=== PATIENT | male | born 1930 | race Caucasian/White ===

== ENCOUNTER 2016-06-23 07:05 | Observation (INO) | payer OTHER, MEDICARE ==
--- NOTE | 2016-06-23 07:04 | EDPHY ---
H & P HPI/ROS: CHIEF COMPLAINT: Chest pain. HISTORY OF PRESENT ILLNESS: The patient is an 86-year-old male with metastatic osteosarcoma who presents via EMS for right-sided chest pain that began 2 hours ago. The pain has been constant since onset. It does not radiate. The pain is worsened with deep breathing. He is not currently anticoagulated on blood thinners but takes daily aspirin. He denies shortness of breath, dizziness, lightheadedness, or other complaints. EMS administered 324mg PO Aspirin en route. REVIEW OF SYSTEMS: A complete 10-point review of systems was performed and is negative except for those items mentioned in the HPI. Past Medical/Surgical History: Hypertension, atrial flutter, prostate cancer, right thigh sarcoma, diabetes type II. I reviewed the patient's H&P dated 11/28/2015. Social History: Lives at the [facility]. Physical Exam: General Appearance: Alert, no distress Eyes: Pupils equal and round, no conjunctival pallor or injection ENT, Mouth: Mucous membranes moist Neck: Normal inspection Respiratory: Rales at both bases. Cardiovascular: Regular rate and rhythm Chest: Right-sided chest wall tenderness. Gastrointestinal: Abdomen is soft and non-tender Neurological: A&O, nonfocal, normal gait Skin: Warm and dry, no rash Extremities: Nontender, no pedal edema Psychiatric: Mood and affect normal Constitutional: Initial Vital Signs Temperature (C) 36.5 C 06/23/16 07:05 Heart Rate 101 H 06/23/16 07:05 Respiratory Rate 22 H 06/23/16 07:05 Blood Pressure 142/95 H 06/23/16 07:05 O2 Sat (%) 87 L 06/23/16 07:05 O2 Delivery Mode Room Air Allergies/Adverse Reactions: acetaminophen [From Tylenol-Codeine #3] Allergy (Verified 06/23/16 07:26) aspartame [artifical sweetener] Allergy (Verified 06/23/16 07:26) codeine phosphate [From Tylenol-Codeine #3] Allergy (Verified 06/23/16 07:26) Annyedy-Psc-Rzn Reductase Inhibitor Allergy (Verified 06/23/16 07:26) Home Medications: Medication Instructions Recorded Aspirin EC [Aspirin EC 81 mg (*)] 81 mg PO DAILY 11/28/15 Colesevelam HCl [Welchol (*)] 1,875 mg PO BIDMEAL 11/28/15 Dabigatran Etexilate Mesyl 150 mg PO BID 11/28/15 [Pradaxa 150 MG (*)] Metoprolol Succinate Xr [Toprol Xl 50 mg PO BID 11/28/15 50 mg (*)] Naproxen Sodium [Aleve 220 MG (*)] 220 mg PO DAILY PRN 11/28/15 Ramipril [Altace 5mg (*)] 10 mg PO BID 11/28/15 metFORMIN HCL [Glucophage 500 mg 1,000 mg PO BIDMEAL 11/28/15 (*)] Acetaminophen [Tylenol ES 500 mg 1,000 mg PO Q6HRS PRN #0 tab 12/02/15 (*)] HYDROmorphone HCL [Dilaudid 2 mg 2 mg PO Q4HRS PRN #14 tab 12/02/15 (*)] Polyethylene Glycol 3350 [Miralax 17 gm PO DAILY PRN #0 pkt 12/02/15 17 gm (*)] Sennosides/Docusate Sodium 1 - 2 tab PO BID #0 tab 12/02/15 [Senokot-S] Medical Decision Making ED Course/Re-evaluation: I met EMS on arrival and obtained a report from the physical director. This 86-year-old male with metastatic osteosarcoma presents with 2 hours of right-sided chest pain. On arrival his vitals are stable but he is mildly hypertensive at 154/ 106. His pain is pleuritic in nature. He is not short of breath. He is tachycardic at 101. An IV was established and labs ordered including cardiac enzymes. EKG obtained. His osteosarcoma is a risk factor for blood clot. I am primarily suspicious for pulmonary embolism so a chest CT was ordered. He is 87 % on room air. Troponin and BNP negative. Lab work is unremarkable. 2135: Chest CT results conveyed to me by Dr. Yepez, radiology. He reports pulmonary embolism. See Imaging section for official report. Hospitalist paged. 2133: Consulted with Fang Paul, hospitalist. She accepts admission for Dr. Layne. Lovenox 80mg subcutaneous administered. Differential Diagnosis: The differential diagnosis for the patient's chest pain included but was not limited to myocardial ischemia, pulmonary embolus, chest wall pain, pleural inflammation, and pulmonary infectious causes. - Data Points Laboratory Results: Laboratory Results 06/23/16 07:10 06/23/16 07:10 06/23/16 06/23/16 07:10 07:10 WBC 9.42 10^3/uL 10^3/uL (3.80-9.50) RBC 5.38 10^6/uL 10^6/uL (4.40-6.38) Hgb 14.4 g/dL g/dL (13.7-17.5) Hct 44.2 % % (40.0-51.0) MCV 82.2 fL fL (81.5-99.8) MCH 26.8 pg L pg (27.9-34.1) MCHC 32.6 g/dL g/dL (32.4-36.7) RDW 18.8 % H % (11.5-15.2) Plt Count 257 10^3/uL 10^3/uL (150-400) MPV 11.7 fL fL (8.7-11.7) Neut % (Auto) 75.5 % H % (39.3-74.2) Lymph % (Auto) 9.6 % L % (15.0-45.0) Webb % (Auto) 9.3 % % (4.5-13.0) Eos % (Auto) 4.7 % % (0.6-7.6) Baso % (Auto) 0.5 % % (0.3-1.7) Nucleat RBC Rel Count 0.0 % % (0.0-0.2) Absolute Neuts (auto) 7.11 10^3/uL H 10^3/uL (1.70-6.50) Absolute Lymphs (auto) 0.90 10^3/uL L 10^3/uL (1.00-3.00) Absolute Monos (auto) 0.88 10^3/uL H 10^3/uL (0.30-0.80) Absolute Eos (auto) 0.44 10^3/uL H 10^3/uL (0.03-0.40) Absolute Basos (auto) 0.05 10^3/uL 10^3/uL (0.02-0.10) Absolute Nucleated RBC 0.00 10^3/uL 10^3/uL (0-0.01) Immature Gran % 0.4 % % (0.0-1.1) Immature Gran # 0.04 10^3/uL 10^3/uL (0.00-0.10) Sodium 138 mEq/L mEq/L (134-144) Potassium 4.7 mEq/L mEq/L (3.5-5.2) Chloride 107 mEq/L mEq/L (97-110) Carbon Dioxide 16 mEq/l L mEq/l (22-31) Anion Gap 15 mEq/L mEq/L (8-16) BUN 23 mg/dL mg/dL (7-23) Creatinine 0.7 mg/dL mg/dL (0.7-1.3) Estimated GFR > 60 Glucose 258 mg/dL H mg/dL (70-100) Calcium 9.4 mg/dL mg/dL (8.5-10.4) Troponin I < 0.012 ng/mL ng/mL (0-0.034) NT-Pro-B Natriuret Pep 82 pg/mL pg/mL (0-450) Medications Given: Discontinued Medications Sodium Chloride (Ns) 500 mls @ 0 mls/hr IV ONCE ONE PRN Reason: As Directed Stop: 06/23/16 08:29 Last Admin: 06/23/16 08:51 Dose: 500 mls Departure - Departure Disposition: [facility] Inpatient Acute Clinical Impression: Pulmonary embolism Qualifiers: Pulmonary embolism type: other Chronicity: unspecified Acute cor pulmonale presence: without acute cor pulmonale Qualified Code(s): I26.99 - Other pulmonary embolism without acute cor pulmonale Condition: Fair Referrals: Patient,NotPresent [Unknown] - As per Instructions Report Scribed for: Kenna Rm Report Scribed by: Sammy Arreaga Date of Report: 06/23/16 Time of Report: 07:04 Physician Review and Approval Statement: 06/23/16 07:04 Portions of this note were transcribed by a medical manager. I personally performed a history, physical exam, medical decision making, and confirmed accuracy of information the transcribed note.
--- NOTE | 2016-06-23 07:20 | CPEKG ---
Heart Rate: 99 RR Interval: 606 P-R Interval: 216 QRSD Interval: 132 QT Interval: 368 QTC Interval: 473 P Whitney: 16 QRS Whitney: 26 T Wave Whitney: -33 EKG Severity - ABNORMAL ECG - EKG Impression: SINUS RHYTHM EKG Impression: FIRST DEGREE AV BLOCK EKG Impression: RIGHT BUNDLE BRANCH BLOCK Electronically Signed By: Kenna Rm 23-Jun-2016 13:41:27
[2016-06-23 07:22] LABS: % IMMATURE GRANULYOCYTES 0.4 % (0.0-1.1); ABSOLUTE IMMATURE GRANULOCYTES 0.04 10^3/uL (0.00-0.10); ADD DIFF? NO; ADD MORPH? NO; ADD SCAN? NO; ATYPICAL LYMPHOCYTE FLAG 10 (0-99); FRAGMENT RBC FLAG 20 (0-99); HEMATOCRIT 44.2 % (40.0-51.0); HEMOGLOBIN 14.4 g/dL (13.7-17.5); LEFT SHIFT FLG 0 (0-99); LIPEMIA HEMOLYSIS FLAG 80 (0-99); MEAN CELL HEMOGLOBIN 26.8 pg (27.9-34.1); MEAN CELL HEMOGLOBIN CONCENTR. 32.6 g/dL (32.4-36.7); MEAN CELL VOLUME 82.2 fL (81.5-99.8); MEAN PLATELET VOLUME 11.7 fL (8.7-11.7); PLATELET CLUMPS FLAG 0 (0-99); PLATELET COUNT 257 10^3/uL (150-400); RED BLOOD CELL COUNT 5.38 10^6/uL (4.40-6.38); RED CELL DISTRIBUTION WIDTH 18.8 % (11.5-15.2)
[2016-06-23] MEDS ORDERED: IOPAMIDOL (ISOVUE 370) 100 ML BTL IV ONE (08:11)
[2016-06-23 08:19] LABS: ANION GAP 15 mEq/L (8-16); CALCIUM 9.4 mg/dL (8.5-10.4); CARBON DIOXIDE 16 mEq/l (22-31); CHLORIDE 107 mEq/L (97-110); CREATININE 0.7 mg/dL (0.7-1.3); GLOMERULAR FILTRATION RATE > 60; GLUCOSE 258 mg/dL (70-100); POTASSIUM 4.7 mEq/L (3.5-5.2); SODIUM 138 mEq/L (134-144)
[2016-06-23] MEDS ORDERED: NS 500 ML IV ONE (08:28)
[2016-06-23 09:17] LABS: TROPONIN I < 0.012 ng/mL (0-0.034)
[2016-06-23] MEDS ORDERED: ENOXAPARIN 80 MG/0.8 ML SYR SC ONE (09:42)
[2016-06-23] MEDS ORDERED: POLYETHYLENE GLYCOL 3350 17 GM PKT PO PRN (11:33)
[2016-06-23] MEDS ORDERED: SENNOSIDES/DOCUSATE SODIUM TAB PO PRN (11:33)
[2016-06-23] MEDS ORDERED: HYDROmorphONE/DILAUDID 2 MG TAB PO PRN (11:33)
[2016-06-23] MEDS ORDERED: D50W 25 GM/50 ML SYR IVP PRN (11:34)
[2016-06-23] MEDS: INSULIN LISPRO 100 UNIT/ML SC SCH ×2 (13:01→16:57)
[2016-06-23] MEDS ORDERED: ONDANSETRON DISINTEGRATING 4 MG TAB PO PRN ×2 (13:15→13:30)
[2016-06-23] MEDS ORDERED: ONDANSETRON 4 MG/2 ML VIAL IVP PRN (13:15)
[2016-06-23] MEDS ORDERED: CETIRIZINE 10 MG TAB PO PRN (13:30)
[2016-06-23] MEDS ORDERED: CLOBETASOL 0.05% 15 GM OINT TUBE TP PRN (13:30)
--- NOTE | 2016-06-23 14:09 | GHP ---
[f rep st] HISTORY AND PHYSICAL DATE OF ADMISSION: 06/23/2016 CHIEF COMPLAINT: Right-sided chest wall pain. HISTORY OF PRESENT ILLNESS: The patient is an 86-year-old gentleman with a history of metastatic osteocarcinoma as well as a history of atrial flutter, who presented to the emergency room with acute chest pain notably on the right side of his chest wall area. He said the pain has been constant since earlier this morning. The pain does not radiate. He denies any shortness of breath or any pain with inspiration. He describes it as a constant pain. He has a history of being anticoagulated with Pradaxa for treatment of A-flutter with a history of an atrial thrombus; per his daughter, he had an ablation and has remained in sinus rhythm. He is no longer on Pradaxa. In the emergency room, he had a CTA performed that showed a pulmonary embolus in right lower lobe area. In addition, it showed that he has large pulmonary metastasis. During my interview, he does not appear to be in any pain. Appetite has been good. No changes in his bowel movements. He complains of swelling of his legs that has been ongoing. In January, this past year had right leg surgery for removal of an osteosarcoma in the right thigh area. PAST MEDICAL HISTORY: 1. Diabetes type 2. 2. Gait instability. 3. Osteosarcoma. 4. A-flutter with a history of atrial thrombus, status post ablation. 5. Hypertension. 6. Remote history of prostate cancer. 7. History of COPD, per radiologic data. 8. Macular degeneration that resolved. PAST SURGICAL HISTORY: 1. Right leg surgery in January 2016 for removal osteosarcoma. 2. Shoulder surgery. 3. Cataract surgery. SOCIAL HISTORY: He lives at home with his . He was recently discharged from [facility] for rehabilitation and then returned home to the [place]. He currently is living at the [place]. He has 4 children. He has been for 64 years. He does not smoke. He does not drink alcohol. He notes that he used to be very athletic and hiked [email or web address] 11 times. In the past, he did investments and renovation of apartment buildings. ALLERGIES: To acetaminophen, aspartame, codeine, phosphate, gabapentin. Seasonal allergies to ragweed. He is also very sensitive to cotton and wool, and multiple fabrics. HOME MEDICATIONS: Herbal supplements daily. Zyrtec 10 mg daily. Acetaminophen 325 mg daily. Zofran ODT 8 mg p.o. q.8 hours p.r.n. Vitamin B12 , 1000 mcg daily. Milk of Mag 30 mL daily. Dilaudid 2 mg q.4 hours p.r.n. Temovate ointment 1 application topical b.i.d. p.r.n. Benadryl 25 mg p.o. at bedtime. Celebrex 200 mg daily p.r.n. Multivitamin 1 tab daily. Aspirin 325 mg daily. Metformin 1000 mg daily. Senna 1-2 tabs twice daily. MiraLAX 17 g daily. REVIEW OF SYSTEMS: A 10-point review of system was performed and negative other than pertinent positives in HPI and past medical history. PHYSICAL EXAM: GENERAL: The patient is an 86-year-old male, who does not appear to be in any acute distress. VITAL SIGNS: Blood pressure is 142/93, heart rate 94, respiratory rate is 14, O2 saturation on 2 L are 94%, temperature is 36.4 Celsius. EYES: He is wearing glasses. Pupils are equal and reactive. EOMs are intact. No conjunctival injection noted. ENT: Normal ears. Hearing is intact. Normal lips, teeth, oral airway is moist. Trachea is midline. CARDIOVASCULAR: He is in a regular rate and rhythm. No murmurs, rubs, or gallops noted. CHEST/LUNGS: He has normal respiratory effort. Lung sounds are very diminished throughout the right middle lobe down. ABDOMEN: Soft, nontender. SKIN: No rashes. Warm, dry and intact. MUSCULOSKELETAL: Equal upper and lower extremity strength. PSYCHIATRIC: He is alert and oriented. Normal mood and affect. Normal judgment and insight. Normal memory. DATA REVIEWED: 1. EKG showed a sinus rhythm, with a 1st degree block, with a right bundle branch block. 2. A chest CTA was performed which showed segmental pulmonary arterial embolus in the right lower lobe. He has large pulmonary metastasis, much worse than January 2016. No changes in fracture of the left 10th and 11th ribs, and compression fractures at T7 and L1. LABORATORY DATA: CBC shows a white blood cell count 9.42, hemoglobin 14.4, hematocrit 44.2, platelet count 257. Chemistry: Sodium is 138, potassium 4.7, chloride of 107, CO2 of 16, BUN 23, creatinine 0.7, glucose 258. Troponin is less than 0.012. I reviewed his care with Dr. Kenna Rm, emergency room physician. ASSESSMENT AND PLAN: 1. Right lower lobe subsegmental pulmonary embolus. He was given a treatment dose of Lovenox in the emergency room. I reviewed his care with Dr. Sol, who recommended Xarelto. Will initiate this. In addition, he has been having some lower extremity swelling. The family would like to know the etiology of the blood clot. Will order ultrasounds to his lower extremities. 2. Diabetes type 2. Will hold his metformin in the setting of getting recent contrast. Sliding scale insulin will be initiated. Will place him on an ADA diet. 3. Hypertension. Resume his home medications. 4. Concern for increasing size of pulmonary metastasis. I spoke with Dr. Sol , he will follow up with the patient. 5. Constipation. Resume his home medication regimen. 6. Code status: Full. 7. Length of stay: He will require less than a 2-midnight stay. This can be re-evaluated in the morning if necessary. 8. DVT prophylaxis. He will be anticoagulated with Xarelto. /[id number]/MODL MTDD
[2016-06-23] MEDS ORDERED: RIVAROXABAN 15 MG TAB PO SCH (18:00)
--- NOTE | 2016-06-23 18:13 | GCON ---
[f rep st] CONSULTATION ONCOLOGY INITIAL VISIT PRIMARY ONCOLOGIST: Kathia Sol MD. REASON FOR CONSULTATION: Metastatic sarcoma. HISTORY OF PRESENT ILLNESS: The patient is an 86-year-old gentleman well known to me with metastati c osteosarcoma with lung mets. 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 He was seen and treated by Dr. Andrew Martinez and Dr. Clemons in [place]. He underwent neoadjuvant radiation in October through December with a partial resp onse, and then underwent resection with clear margins in January 2016. In January, he had new dl y small lesions in his lungs that were too small to determine, so I have been monitoring him closely . After the resection, he has been undergoing rehab with slow improvement. Since January, he has been having a slow progression in the lung nodules, and on May 22, [facility] showed that these nodules not only continue to grow, but were PET avid consistent with metastat ic disease. At that time, I talked to him, but he did not seem to be having much symptoms from the cancers, and was still in rehab. Her plan was to try to get him home, and then determine systemic t herapy at that time. He was admitted today with right-sided chest pain. He has been having a little mild hypoxia the las t couple days. He is home with therapy, and assistants coming out to the this independent living. He had a previous history of atrial flutter and atrial thrombus, and had been on Pradaxa, but after the ablation, was in sinus rhythm, so it was stopped. In the emergency room, he had a CTA performed that showed a pulmonary embolism in the right lower lobe. It also showed that his pulmonary metast ases had enlarged since January, but they did not compare it to the PET scan in May. He has mayb e been a little bit more tired and slightly more dyspneic, but no other symptoms since I last saw winnie infante. He is in the room with his daughter. ALLERGIES: Statins. PAST MEDICAL HISTORY: Chronic illnesses: 1. Type 2 diabetes. 2. History of atrial flutter. 3. Hypertension. 4. Remote history of prostate cancer. 5. History of COPD. 6. Macular degeneration. 7. Osteosarcoma, as per HPI. PAST SURGICAL HISTORY: Includes: 1. The right leg surgery in January. 2. Shoulder surgery. 3. Cataract surgery. SOCIAL HISTORY: He is lives in independent living after recent discharge from [facility]. He is living at the [facility]. He has 4 children. Does not smoke or drink alcohol. FAMILY HISTORY: Negative for malignancy in the family. REVIEW OF SYSTEMS: Ten-point review was performed. Pertinent positives in HPI, otherwise negative. PHYSICAL EXAMINATION: VITAL SIGNS: Temperature is 36.7, pulse is 93, blood pressure is 154/98. GE NERAL: He is an elderly man, but in no distress. HEENT: Unremarkable. LUNGS: Clear. CARDIAC: Regular without murmur. He has slight edema in his left leg. ABDOMEN: Soft, nontender. SKIN: No sign of thrombophlebitis. NEUROLOGIC: Grossly intact. LABORATORY DATA: On arrival, CBC is unremarkable. Glucose is up. His other chemistries are unrema rkable. CT angiogram compared to January showed that he is having an increase in the masses, the largest is 3.6 cm in the left upper lobe. I believe on the PET scan, it was reported at about 1.5 cm. IMPRESSION: 1. Metastatic osteosarcoma, with progressive disease in the lungs. 2. Acute pulmonary embolism. I spoke with the hospitalist, and, apparently, he has testing showing that he is very sensitive to C oumadin, had problems with it in the past, so I agree with using one of the other agents. I am not as in favor of Pradaxa because it has cleared almost 100% to the kidneys, and most elderly patients do have some mild kidney dysfunction. Instead, it is decided to put on rivaroxaban, which is fine. I spent significant time today with him and the daughter discussing whether or not he should start s ystemic therapy. The alternative option is not undergo any systemic therapy, and going comfort radha ures only. He has not been certain whether or not he wants to undergo therapy. If he does choose t herapy, there are 2 options: One is intravenous with doxorubicin, day 1, and olaratumab, day 1/day 8 every 3 weeks. I explained to him that the benefit of IVs, we know the drug gets in and absorbed. The downside is, he will have to come in the office for treatment once a week for 2 weeks in a row , then every 3 weeks, and we will need to put in something like a PICC line because doxorubicin is d angerous to give in just a standard IV. We will also need a baseline echocardiogram. The other sys temic treatment would be to try pazopanib, which is given at 800 mg daily. Most patients tolerate i t, but can cause rash and diarrhea. Generally, with the drugs held, his symptoms resolve rapidly. At this point, he wants to discuss with the family and think about it, but if he elects treatment, anjali gastelum is thinking oral, which we can set that up if he prefers to go forward with that. /[id number]/MODL
[2016-06-23] MEDS: RIVAROXABAN 15 MG TAB PO SCH (20:17)
[2016-06-24] MEDS ORDERED: CYANO/VITAMIN B12 1000 MCG TAB PO SCH (09:00)
[2016-06-24] MEDS ORDERED: Herbals/Supplements -Info Only PO SCH ×2 (09:00)
[2016-06-24] MEDS ORDERED: MULTIVITAMINS 1 EACH TAB PO SCH (09:00)
[2016-06-24 09:06] VITALS: RESP 18
[2016-06-24] MEDS: INSULIN LISPRO 100 UNIT/ML SC SCH ×2 (09:07→12:00)
[2016-06-24] MEDS: RIVAROXABAN 15 MG TAB PO SCH (09:07)
--- NOTE | 2016-06-24 10:32 | PDIAF ---
- Diagnosis Code Status: Full Code - Medication Management Discharge Medications: Medications to Continue on Transfer Polyethylene Glycol 3350 [Miralax 17 gm (*)] 17 gm PO DAILY PRN #0 pkt 12/02/15 [Last Taken Unknown] Acetaminophen [Tylenol 325mg (*)] 325 mg PO DAILY PRN 06/23/16 [Last Taken Unknown] Cetirizine [ZyrTEC 10 mg (*)] 10 mg PO DAILY PRN 06/23/16 [Last Taken Unknown] Clobetasol 0.05% [Temovate Ointment] 1 leila TP BID PRN 06/23/16 [Last Taken Unknown] Cyanocobalamin [Vitamin B12 (*)] 1,000 mcg PO DAILY 06/23/16 [Last Taken Unknown ] Magnesium Hydroxide [Milk of Magnesia] 30 ml PO DAILY PRN 06/23/16 [Last Taken Unknown] Multivitamins [Multivitamin (*)] 1 each PO DAILY 06/23/16 [Last Taken Unknown] Ondansetron Odt [Zofran Odt 4 mg (*)] 8 mg PO Q8HRS PRN 06/23/16 [Last Taken Unknown] Sennosides/Docusate Sodium [Senokot-S] 1 - 2 tab PO BID PRN 06/23/16 [Last Taken Unknown] celeCOXIB [Celebrex (*)] 200 mg PO DAILY PRN 06/23/16 [Last Taken Unknown] diphenhydrAMINE [Benadryl 25 MG (*)] 25 mg PO HS PRN 06/23/16 [Last Taken Unknown] metFORMIN HCL [Metformin HCl ER] 1,000 mg PO DAILY 06/23/16 [Last Taken Unknown] Rivaroxaban [Xarelto 15mg (*)] 15 mg PO BIDMEAL #42 tab 06/24/16 [Last Taken Unknown] Discharge Medications: Refer to the Discharge Home Medication list for PRN reason. - Orders Services needed: Home Care, Registered Nurse, Certified Rounding And Backing Machine Operator, Physical Therapy, Occupational Therapy Home Care Face to Face: I certify that this patient was under my care and that I had the required [id number] encounter meeting the encounter requirements on the discharge day. My findings support the fact that the patient is homebound as defined in CMS Chapter 7 Medicare Benefits Manual 30.1.1, The condition of the patient is such that there exists a normal inability to leave home and consequently, leaving home would require a considerable and taxing effort. Oxygen: 2L NC continuous Diet Recommendation: no restrictions on diet - Labs/Radiology FBS Date: 06/24/16 (daily) - Follow Up Care Current Providers and Referrals: Patient,NotPresent [Unknown] - As per Instructions Kathia Sol MD [Medical Doctor] -
--- NOTE | 2016-06-24 10:32 | PDDCSUM ---
Discharge Summary Discharge Summary: Dates of service 06/23-06/24/16 Consultations: oncology Procedures performed: chest CTA, echocardiogram, venous US lowe extremities Hospital course by problem: # acute PE: started on lovenox and transitioned to xarelto. He is on his usual home oxygen and has been for the most part not hypoxic even on RA other than a couple of dips to the high 80s. He is symptomatic with the lower o2 however. # metastatic osteosarcoma: with increased tumor burden noted on his chest imaging, he was seen by Dr. Sol who is his usual oncologist and has plans to begin treatment again in the near future. Echo performed for pre-chemo evaluation. # chest pain: right sided and correlating to PE location in RLL, patients family states that he cannot take any narcotics specifically due to genetic testing that he had that confirmed that patient would absolutely have adverse effects, and potentially even , if he were to take any narcotic pain medication. It was noted however that on patients home med list was dilaudid-- given family's concerns this was discontinued as a home med. He does do celebrex as an OP and says that tylenol doesn't work. His pain has been mild. # DM2: resonably well controlled on metformin, will have patient continue to f/ u with PCP to make adjustments as needed. # paroxysmal a flutter: on ecg and tele here has had NSR, will dc full dose asa given that he will now be on xarelto # chronic hypoxia: as above, dc home on supplemental o2, related to PE/ metastatic lung cancer DC home with continued 24 hour care f/u with oncology as scheduled Meds: see EHR > 35 minutes spent in dc of this patient more than half in coordination of care.
--- NOTE | 2016-06-24 11:37 | ECHO ---
[id number] + + [address] : : [place] [address] : : [phone] + + Adult Echocardiographic Report + ------+ :Name: GALA LOMAS WStudy Date: 06/24/2016 10:22 AM : : Hospital Admission Number: [id number] Locatio n: 390: :: 1930 Gender: Male Height: 65 in : :Age: 86 yrs Race: WH Weight: 172 lb : :Reason For Study: Eval LV Fx : : BSA: 1.9 meters 2 : :History: Pre Chemo : + ------+ MMode/2D Measurements \T\ Calculations IVSd: 0.96 cm LVIDd: 4.3 cm FS: 42.2 % Ao root diam: 3.3 cm LVPWd: 1.0 cm LVIDs: 2.5 cm EDV(Teich): 83.2 ml ACS: 1.5 cm ESV(Teich): 22.1 ml EF(Teich): 73.5 % LVOT diam: 2.1 cm LVOT area: 3.5 cm2 Normal Measurement Values: + + :LVIDd (3.5-5.7cm) IVSd (0.6-1.1cm) LVPWd (0.6-1.1cm) Aortic Root (2.0-3.7cm)Left Atrium (1.5-4.0cm): :LV Vol(d) (76-115ml) LV Vol(s) (29-48ml) Ejec Fraction (50-65%)PV Parag (0.6- 1.2m/s) TV Parag (0.4-1.0m/s) : :MV E Parag (0.8-1.0m/s)MV A Parag (0.3-1.0m/s)LVOT Parag (0.7-1.2m/s) Asc Ao Parag ( 0.9-1.8m/s) : + + Doppler Measurements \T\ Calculations MV E max parag: Ao V2 max: LV V1 max: SV(LVOT): 60.7 cm/sec 143.5 cm/sec 64.2 cm/sec 50.4 ml MV A max parag: Ao max P.2 mmHg LV V1 max P.6 cm/sec Ao mean P.4 mmHg 1.6 mmHg MV E/A: 0.86 Ao V2 mean: LV V1 mean P.0 cm/sec 0.89 mmHg Ao V2 VTI: 27.2 cm LV V1 mean: 42.6 cm/sec LEEANNE(I,D): 1.9 cm2 LV V1 VTI: 14.5 cm LEEANNE(V,D): 1.5 cm2 PA V2 max: 103.2 cm/sec PA max P.3 mmHg Left Ventricle The left ventricle is normal in size. There is normal left ventricular wall thickness. The left ventricular ejection fraction is normal. There is Doppler evidence for diastolic dysfunction. Ejection Fraction = 74%. No regional wall motion abnormalities noted. Right Ventricle The right ventricle is normal in size and function. Atria The left atrial size is normal. Right atrial size is normal. Mitral Valve There is mild mitral annular calcification. There is no evidence of mitral valve prolapse. There is no mitral valve stenosis. There is trace mitral regurgitation. Tricuspid Valve Normal tricuspid valve. There is trace tricuspid regurgitation. Right ventricular systolic pressure is normal. Aortic Valve There is mild aortic valve calcification. There is no aortic stenosis. There is no aortic insufficiency. Pulmonic Valve The pulmonic valve is normal in structure and function. There is no pulmonic valvular regurgitation. Great Vessels The aortic root is normal size. Pericardium/Pleural There is no pericardial effusion. Conclusion A complete two-dimensional transthoracic echocardiogram was performed (2D, M-mode, Doppler and color flow Doppler). The left ventricular ejection fraction is normal. There is Doppler evidence for diastolic dysfunction. Ejection Fraction = 74%. No regional wall motion abnormalities noted. The right ventricle is normal in size and function. The left atrial size is normal. There is mild aortic valve calcification. There is mild mitral annular calcification with reduced posterior leaflet mobility. There is trace mitral regurgitation. There is trace tricuspid regurgitation. Right ventricular systolic pressure is normal. There is no pericardial effusion. Final Reading Physician: Mayi Worrell signed on 06/24/2016 11:35 AM Ordering Physician: Omari Layne Performed By: Marko Caballero, JOSECS
[2016-06-24 12:32] VITALS: BP 128/95; PULSE 92; TEMP 98.1; O2SAT 92
--- NOTE | 2016-06-24 12:56 | SOAPPROG ---
SOAP Progress Note Assessment/Plan: E&M for sarcoma * Metastatic sarcoma with lung mets: he has decided to try therapy and prefers the oral option, pazopanib. I will arrange this through my office. * PE: going on on Xarelto; clinically stable Subjective: Had some chest pain last night but none today. Occasional cough. Ready to go home. Objective: Vital Signs Temp Pulse Resp BP Pulse Ox 36.7 C 92 18 128/95 H 92 06/24/16 12:00 06/24/16 12:00 06/24/16 12:00 06/24/16 12:00 06/24/16 12:00 06/23/16 06/24/16 06/25/16 05:59 05:59 05:59 Intake Total 800 Output Total 150 201 Balance 650 -201 Physical Exam - Physical Exam General Appearance: no apparent distress Respiratory: normal breath sounds Cardiac/Chest: regular rate, rhythm ICD10 Worksheet Patient Problems: Problems Problem Status Onset Pulmonary embolism Acute Sarcoma of right lower extremity Acute
== END 2016-06-24 16:33 | disposition home health service (06) ==
LOC: EDUNIT# → F3E 11:19
PROVIDERS: ADMIT Internal Medicine; ATTEND Internal Medicine
DX: I26.99 Other pulmonary embolism without acute cor pulmonale (principal); C49.21 Malignant neoplasm of connective and soft tissue of right lower limb, including hip; R07.9 Chest pain, unspecified; C78.00 Secondary malignant neoplasm of unspecified lung; T40.605D Adverse effect of unspecified narcotics, subsequent encounter; I25.10 Atherosclerotic heart disease of native coronary artery without angina pectoris; I48.92 Unspecified atrial flutter; R09.02 Hypoxemia; E11.9 Type 2 diabetes mellitus without complications; I10 Essential (primary) hypertension; I45.10 Unspecified right bundle-branch block; J44.9 Chronic obstructive pulmonary disease, unspecified; K59.00 Constipation, unspecified; Z85.46 Personal history of malignant neoplasm of prostate; Z92.3 Personal history of irradiation; Z79.82 Long term (current) use of aspirin; Z79.84 Long term (current) use of oral hypoglycemic drugs
CPT/HCPCS: 71275; 93005; 93306; 93970; 96372; 97162; 97166; 99285; G0378; G8978; G8979; G8987; G8988; G8989; J1650; J1815; Q9967

== ENCOUNTER → 2016-09-07 | Outpatient (CLI) | payer OTHER, MEDICARE | LOC: FLAB 15:49 | PROVIDERS: ATTEND Nurse Practitioner | DX: R22.41 Localized swelling, mass and lump, right lower limb (principal); M25.561 Pain in right knee; Z98.890 Other specified postprocedural states; Z85.831 Personal history of malignant neoplasm of soft tissue ==

== ENCOUNTER 2016-09-10 22:34 | Inpatient (IN) | payer OTHER, MEDICARE ==
[2016-09-10 22:51] LABS: % IMMATURE GRANULYOCYTES 0.4 % (0.0-1.1); ABSOLUTE IMMATURE GRANULOCYTES 0.02 10^3/uL (0.00-0.10); ADD DIFF? NO; ADD MORPH? YES; ADD SCAN? NO; ATYPICAL LYMPHOCYTE FLAG 0 (0-99); FRAGMENT RBC FLAG 0 (0-99); HEMATOCRIT 49.4 % (40.0-51.0); HEMOGLOBIN 16.5 g/dL (13.7-17.5); LEFT SHIFT FLG 10 (0-99); LIPEMIA HEMOLYSIS FLAG 80 (0-99); MEAN CELL HEMOGLOBIN 30.5 pg (27.9-34.1); MEAN CELL HEMOGLOBIN CONCENTR. 33.4 g/dL (32.4-36.7); MEAN CELL VOLUME 91.3 fL (81.5-99.8); MEAN PLATELET VOLUME 10.7 fL (8.7-11.7); PLATELET CLUMPS FLAG 0 (0-99); PLATELET COUNT 188 10^3/uL (150-400); RED BLOOD CELL COUNT 5.41 10^6/uL (4.40-6.38)
--- NOTE | 2016-09-10 22:54 | CPEKG ---
Heart Rate: 101 RR Interval: 594 P-R Interval: 196 QRSD Interval: 126 QT Interval: 360 QTC Interval: 467 P [place]: 43 QRS [place]: -98 T Wave [place]: 3 EKG Severity - ABNORMAL ECG - EKG Impression: SINUS TACHYCARDIA EKG Impression: RBBB AND LPFB Electronically Signed By: Miguel Salas 11-Sep-2016 07:04:11
[2016-09-10 22:55] LABS: RED CELL DISTRIBUTION WIDTH 21.6 % (11.5-15.2)
[2016-09-10 22:56] LABS: ANION GAP 13 mEq/L (8-16); APTT 31.1 SEC (23.0-38.0); CARBON DIOXIDE 23 mEq/l (22-31); CHLORIDE 97 mEq/L (97-110); CREATININE 0.9 mg/dL (0.7-1.3); GLOMERULAR FILTRATION RATE > 60; GLUCOSE 113 mg/dL (70-100); INR 1.46 (0.83-1.16); POTASSIUM 4.7 mEq/L (3.5-5.2); PROTIME(PATIENT) 17.7 SEC (12.0-15.0); SODIUM 133 mEq/L (134-144)
--- NOTE | 2016-09-10 23:08 | EDPHY ---
H & P Time Seen by Provider: 09/10/16 22:40 HPI/ROS: Chief Complaint: Chest pain HPI: 86-year-old male with a history of metastatic osteosarcoma, known PE on Xarelto, type 2 diabetes who is presenting this evening having had an episode of chest pain in his right chest which then radiated to the left. This happened at about 10 o'clock. Patient went to sleep and then woke up and noted the pain has shifted. Has oxygen at home was not routinely wearing it is not noted to be particular hypoxic. Paramedics were concerned on arrival because he has noted ABD cut of drooping to the right and week on the right leg. He has had a surgery on his light leg for the osteosarcoma. Patient's is here in telling me that he has neurologic status is at his baseline. Patient has not been ambulatory without a walker since his surgery. He did have walk with assistance and a walker earlier today. No recent fevers or chills. No new cough. Has not had similar chest pain recently but did have chest pain in the similar region when he was diagnosed with his PE. He is taking Xarelto currently for this. No new changes to his medications. ROS: 10 point Review of Systems is negative except as noted in the HPI. PMH: Metastatic osteosarcoma Pulmonary embolus in the right lower lobe in June of this year, type 2 diabetes, Atrial fibrillation Chronic hypoxia Social History: No smoking, no alcohol, no recreational drug use Family History: non-contributory Physical Exam: Gen: Awake, Alert, No Distress HEENT: Nose: no rhinorrhea Eyes: PERRLA, EOMI Mouth: Moist mucosa Neck: Supple, no JVD Chest: nontender, lungs clear to auscultation, mild diffuse expiratory wheezing Heart: S1, S2 normal, no murmur Abd: Soft, non-tender, no guarding Back: no CVA tenderness, no midline tenderness Ext: no edema, non-tender, noted right thigh deformity consistent with prior surgical treatment in January, nonacute Skin: no rash Neuro: CN II-XII intact, Sensation grossly intact, Strength 5/5 in bilateral upper and lower extremities - Medical/Surgical History Hx Asthma: No Hx Chronic Respiratory Disease: No Hx Diabetes: Yes Hx Cardiac Disease: Yes Hx Renal Disease: No Hx Cirrhosis: No Hx Alcoholism: No Hx HIV/AIDS: No Hx Splenectomy or Spleen Trauma: No Other PMH: PMH: Sarcoma,surgery 01/28, prostate CA, cardiac ablation, A-fib, "borderline" diabetic, HTN, high cholesterol. BRAC implant for prostate CA 10 yrs ago - Social History Smoking Status: Never smoked Constitutional: Initial Vital Signs Temperature (C) 36.8 C 09/10/16 22:35 Heart Rate 100 09/10/16 22:35 Respiratory Rate 19 09/10/16 22:35 Blood Pressure 150/120 H 09/10/16 22:35 O2 Sat (%) 90 L 09/10/16 22:35 O2 Delivery Mode Nasal Cannula O2 (L/minute) 2 Allergies/Adverse Reactions: acetaminophen [From Tylenol-Codeine #3] Allergy (Verified 06/23/16 07:26) aspartame [artifical sweetener] Allergy (Verified 06/23/16 07:26) codeine phosphate [From Tylenol-Codeine #3] Allergy (Verified 06/23/16 07:26) gabapentin Allergy (Verified 06/23/16 10:15) oxycodone Allergy (Verified 06/23/16 10:15) Gjdlwvd-Pnz-Rcn Reductase Inhibitor Allergy (Verified 06/23/16 07:26) all artificial sweetners Allergy (Uncoded 06/23/16 11:53) Home Medications: Medication Instructions Recorded Polyethylene Glycol 3350 [Miralax 17 gm PO DAILY PRN #0 pkt 12/02/15 17 gm (*)] Acetaminophen [Tylenol 325mg (*)] 325 mg PO DAILY PRN 06/23/16 Cetirizine [ZyrTEC 10 mg (*)] 10 mg PO DAILY PRN 06/23/16 Clobetasol 0.05% [Temovate 1 leila TP BID PRN 06/23/16 Ointment] Cyanocobalamin [Vitamin B12 (*)] 1,000 mcg PO DAILY 06/23/16 Magnesium Hydroxide [Milk of 30 ml PO DAILY PRN 06/23/16 Magnesia] Multivitamins [Multivitamin (*)] 1 each PO DAILY 06/23/16 Ondansetron Odt [Zofran Odt 4 mg 8 mg PO Q8HRS PRN 06/23/16 (*)] Sennosides/Docusate Sodium 1 - 2 tab PO BID PRN 06/23/16 [Senokot-S] celeCOXIB [Celebrex (*)] 200 mg PO DAILY PRN 06/23/16 diphenhydrAMINE [Benadryl 25 MG 25 mg PO HS PRN 06/23/16 (*)] metFORMIN HCL [Metformin HCl ER] 1,000 mg PO DAILY 06/23/16 Rivaroxaban [Xarelto 15mg (*)] 15 mg PO BIDMEAL #42 tab 06/24/16 Medical Decision Making ED Course/Re-evaluation: 0115 patient is complaining of left-sided chest pain right now. Will give nitrates and reassess. Patient's pain is resolved. I have discussed with Dr. Echols, hospitalist. He will admit the patient to his service for further evaluation of chest pain. - Data Points Laboratory Results: Laboratory Results 09/10/16 22:40 09/10/16 22:40 09/10/16 09/10/16 09/10/16 22:40 22:40 22:40 WBC RBC Hgb POC Hgb Hct POC Hct MCV MCH MCHC RDW Plt Count MPV Neut % (Auto) Lymph % (Auto) [place] % (Auto) Eos % (Auto) Baso % (Auto) Nucleat RBC Rel Count Absolute Neuts (auto) Absolute Lymphs (auto) Absolute Monos (auto) Absolute Eos (auto) Absolute Basos (auto) Absolute Nucleated RBC Immature Gran % Immature Gran # Platelet Estimate Microcytic Cells Oval Macrocytes PT 17.7 SEC H SEC (12.0-15.0) INR 1.46 H (0.83-1.16) APTT 31.1 SEC SEC (23.0-38.0) POC Sodium Sodium 133 mEq/L L mEq/L (134-144) POC Potassium Potassium 4.7 mEq/L mEq/L (3.5-5.2) POC Chloride Chloride 97 mEq/L mEq/L (97-110) Carbon Dioxide 23 mEq/l mEq/l (22-31) Anion Gap 13 mEq/L mEq/L (8-16) POC BUN BUN 19 mg/dL mg/dL (7-23) Creatinine 0.9 mg/dL mg/dL (0.7-1.3) POC Creatinine Estimated GFR > 60 Glucose 113 mg/dL H mg/dL (70-100) POC Glucose Calcium 9.0 mg/dL mg/dL (8.5-10.4) Troponin I < 0.012 ng/mL ng/mL (0-0.034) 09/10/16 09/10/16 22:40 22:31 WBC 5.17 10^3/uL 10^3/uL (3.80-9.50) RBC 5.41 10^6/uL 10^6/uL (4.40-6.38) Hgb 16.5 g/dL g/dL (13.7-17.5) POC Hgb 17.7 gm/dL H gm/dL (13.7-17.5) Hct 49.4 % % (40.0-51.0) POC Hct 52 % H % (40-51) MCV 91.3 fL fL (81.5-99.8) MCH 30.5 pg pg (27.9-34.1) MCHC 33.4 g/dL g/dL (32.4-36.7) RDW 21.6 % H % (11.5-15.2) Plt Count 188 10^3/uL 10^3/uL (150-400) MPV 10.7 fL fL (8.7-11.7) Neut % (Auto) 60.6 % % (39.3-74.2) Lymph % (Auto) 19.3 % % (15.0-45.0) [place] % (Auto) 11.4 % % (4.5-13.0) Eos % (Auto) 7.7 % H % (0.6-7.6) Baso % (Auto) 0.6 % % (0.3-1.7) Nucleat RBC Rel Count 0.0 % % (0.0-0.2) Absolute Neuts (auto) 3.13 10^3/uL 10^3/uL (1.70-6.50) Absolute Lymphs (auto) 1.00 10^3/uL 10^3/uL (1.00-3.00) Absolute Monos (auto) 0.59 10^3/uL 10^3/uL (0.30-0.80) Absolute Eos (auto) 0.40 10^3/uL 10^3/uL (0.03-0.40) Absolute Basos (auto) 0.03 10^3/uL 10^3/uL (0.02-0.10) Absolute Nucleated RBC 0.00 10^3/uL 10^3/uL (0-0.01) Immature Gran % 0.4 % % (0.0-1.1) Immature Gran # 0.02 10^3/uL 10^3/uL (0.00-0.10) Platelet Estimate ADEQUATE (ADEQ) Microcytic Cells 1+ H Oval Macrocytes 1+ H PT INR APTT POC Sodium 137 mEq/L mEq/L (134-144) Sodium POC Potassium 4.5 mEq/L mEq/L (3.3-5.0) Potassium POC Chloride 97 mEq/L mEq/L (97-110) Chloride Carbon Dioxide Anion Gap POC BUN 19 mg/dL mg/dL (7-23) BUN Creatinine POC Creatinine 1.0 mg/dL mg/dL (0.7-1.3) Estimated GFR Glucose POC Glucose 117 mg/dL H mg/dL (70-100) Calcium Troponin I Medications Given: Discontinued Medications Morphine Sulfate (Morphine) 2 mg IVP EDNOW ONE Stop: 09/11/16 01:21 Last Admin: 09/11/16 01:29 Dose: 2 mg Ondansetron HCl (Zofran) 4 mg IVP EDNOW ONE Stop: 09/11/16 02:31 Last Admin: 09/11/16 02:35 Dose: 4 mg Point of Care Test Results: 09/10/16 22:31 POC Sodium 137 POC Potassium 4.5 POC Chloride 97 POC BUN 19 POC Creatinine 1.0 POC Glucose 117 H Departure - Departure Disposition: [facility] Inpatient Acute Clinical Impression: Chest pain Condition: Fair
[2016-09-10 23:22] LABS: MACROCYTES 1+; MICROCYTES 1+; PLATELET ESTIMATE ADEQUATE (ADEQ)
--- NOTE | 2016-09-11 01:21 | CPEKG ---
Heart Rate: 98 RR Interval: 612 P-R Interval: 191 QRSD Interval: 96 QT Interval: 352 QTC Interval: 450 P [place]: 0 QRS [place]: 3 T Wave [place]: -9 EKG Severity - BORDERLINE ECG - EKG Impression: SINUS RHYTHM EKG Impression: ABERRANT COMPLEX, POSSIBLY SUPRAVENTRICULAR EKG Impression: LOW VOLTAGE THROUGHOUT EKG Impression: BORDERLINE T ABNORMALITIES, INFERIOR LEADS Electronically Signed By: Miguel Salas 11-Sep-2016 07:04:11
[2016-09-11] MEDS ORDERED: ONDANSETRON 4 MG/2 ML VIAL ONE ×2 (02:25→02:26)
[2016-09-11] MEDS ORDERED: hydrALAZINE 20 MG/ML VIAL IVP PRN (02:29)
[2016-09-11] MEDS ORDERED: ONDANSETRON 4 MG/2 ML VIAL IVP ONE (02:30)
[2016-09-11] MEDS ORDERED: D50W 25 GM/50 ML SYR IVP PRN (02:38)
--- NOTE | 2016-09-11 03:16 | GHP ---
[f rep st] HISTORY AND PHYSICAL DATE OF ADMISSION: 09/11/2016 HISTORY OF PRESENT ILLNESS: The patient is a pleasant 86-year-old gentleman with a history of metas tatic osteosarcoma and recent admission for PE in June of this year, presents with chest pain and d escribed as right-sided chest pain that radiated to his left. His history and physical from June d escribes right-sided chest pain as part of his PE symptom complex; however, he denies that he has no t been short of breath. He does not have exertional symptoms. He says he has had stress tests that have been positive for coronary artery disease, but has had no procedures in the past. He has not had PND, orthopnea, or lower extremity edema. His blood pressures are elevated at 180/140, which is a new finding for him, and indeed when I review his vital signs from June, they are in the 130/90 range. He has been eating and drinking okay. No diarrhea. No fever, chills, cough, sputum. REVIEW OF SYSTEMS: Complete 10-point review of systems conducted, negative except as noted in the H PI. PAST MEDICAL HISTORY: 1. Metastatic osteosarcoma. 2. Right-sided pulmonary embolism. 3. Type 2 diabetes. 4. Gait instability. 5. Osteosarcoma. 6. A flutter with history of atrial thrombus, now status post ablation. 7. Hypertension. 8. Remote prostate cancer. 9. COPD. 10. Macular degeneration. 11. He had right leg surgery January 2016 for removal of osteosarcoma. 12. Shoulder surgery. 13. Cataract surgery. SOCIAL HISTORY: Lives with his . Lives at the [place]. No tobacco, no alcohol. ALLERGIES: Acetaminophen, aspartame, codeine, phosphate, gabapentin, ragweed, cotton and wool, mult iple fabrics. HOME MEDICATIONS: Tylenol, Celebrex, cetirizine, clobetasol ointment, B12, diphenhydramine, Mag oxi de, metformin 1000 daily, multivitamin a day, is to try MiraLAX, rivaroxaban, senna. FAMILY HISTORY: Parents . PHYSICAL EXAM: VITAL SIGNS: Afebrile, blood pressure 171/136, pulse 94-100, breathing 16 times a m inute, 94% on 2 L. GENERAL: No acute distress. Sclerae anicteric. Oropharynx clear. Mucous memb ranes moist. NECK: Supple. No lymphadenopathy or JVD. LUNGS: Clear to auscultation bilaterally. Decreased breath sounds in left base. HEART: S1, S2. ABDOMEN: Soft, nontender, nondistended. LOWER EXTREMITIES: Without edema. Calves nontender. SKIN: Without rash. NEUROLOGIC: Nonfocal. There is some bruising over the right knee, which is new. This is in the same site of his surgical resection. LABS: White count 5.2, hematocrit 49, platelets are 188,000, INR is 1.46. Sodium 133, potassium 4. 7, chloride 97, bicarb 22, BUN and creatinine 19, creatinine 0.9, glucose 113, troponin less than 0. 012. Chest x-ray, interpreted by me, shows new left-sided pleural effusion EKG shows sinus at 98 with nor mal axis, some T-wave inversions across the precordium with right bundle branch block pattern. I di scussed the case with Dr. Miguel Salas. ASSESSMENT AND PLAN: This 86-year-old gentleman presents with chest pain and hypertension. 1. Chest pain. It is possible this represents a new pulmonary embolism. He does have a left-sided pleural effusion. He is currently anticoagulated. I think at this point in time, will continue hi s anticoagulants. His INR is indicative that he has been taking them. At this point, I am going to have him hold up for further scan. Will check a BNP and cycle his troponins. I do think given his overall health status that pursuance of further cardiac workup may not be the most reasonable thing . He did have an echocardiogram performed in June of this year, it was relatively unremarkable not ing diastolic dysfunction. 2. Pleural effusion. This could be from his known burden of his thoracic metastasis, but it could also be from mild heart failure. BNP is pending. Will diurese in the morning. 3. Hypertension. We will give him some p.r.n. hydralazine. Continue his medications. They have b een reconciled. 4. Diabetes. We can start his metformin in the morning and put him on some lispro sliding scale in the interim. 5. Code status. Full. 6. Disposition. Prophylaxis anticoagulated. /[id number]/MODL
[2016-09-11] MEDS: ONDANSETRON 4 MG/2 ML VIAL IVP PRN ×4 (04:07→20:42)
[2016-09-11] MEDS ORDERED: NITROGLYCERIN 0.4 MG BTL SL ONE (04:37)
[2016-09-11 05:01] LABS: ANION GAP 13 mEq/L (8-16); CALCIUM 9.2 mg/dL (8.5-10.4); CARBON DIOXIDE 21 mEq/l (22-31); CHLORIDE 100 mEq/L (97-110); CREATININE 0.9 mg/dL (0.7-1.3); GLOMERULAR FILTRATION RATE > 60; GLUCOSE 147 mg/dL (70-100); POTASSIUM 4.7 mEq/L (3.5-5.2); SODIUM 134 mEq/L (134-144)
[2016-09-11] MEDS ORDERED: HYDROmorphONE/DILAUDID 1 MG/ML SYR ONE (05:07)
[2016-09-11 05:10] LABS: TROPONIN I < 0.012 ng/mL (0-0.034)
--- NOTE | 2016-09-11 05:14 | CPEKG ---
Heart Rate: 109 RR Interval: 550 P-R Interval: 144 QRSD Interval: 122 QT Interval: 380 QTC Interval: 512 P [place]: 0 QRS [place]: 150 T Wave [place]: -11 EKG Severity - ABNORMAL ECG - EKG Impression: SINUS TACHYCARDIA EKG Impression: RBBB AND LPFB EKG Impression: RBBB IS NEW IN COMPARISON TO PRIOR, BUT SEEN ON EARLIER ECGs Electronically Signed By: Benjamin Benavides 11-Sep-2016 09:08:10
[2016-09-11] MEDS: HYDROmorphONE/DILAUDID 1 MG/ML SYR IVP PRN ×3 (05:18→14:25)
[2016-09-11] MEDS ORDERED: NITROGLYCERIN 0.4 MG BTL SL PRN (05:57)
[2016-09-11] MEDS: INSULIN LISPRO 100 UNIT/ML SC SCH ×3 (07:54→18:51)
[2016-09-11] MEDS ORDERED: RIVAROXABAN 15 MG TAB PO SCH (08:00)
[2016-09-11] MEDS: FUROSEMIDE 40 MG/4 ML VIAL IVP SCH (08:03)
[2016-09-11] MEDS: traMADol 50 MG TAB PO PRN (14:27)
--- NOTE | 2016-09-11 15:48 | PDCONSULT ---
Slack Cooper Note: I was requested to evaluate Mr. Brito by Dr. Steele for a left hydropneumothorax. He has known metastatic osteosarcoma with bilateral pulmonary metastases and was admitted last night. He is currently on Xarelto and received 15 mg this morning. I spoke with Dr. Steele and Jovanny Fonseca RN and recommended he be transferred to ICU for observation until it is safe to place a chest tube, if the family wishes to be aggressive in his care moving forward. He has been on Votrient since June of this year but was intolerant and his dose was recently decrease by his oncologist Dr. Sol. A repeat CT this afternoon showed bilateral hydropneumothoraces with areas of subpleural tumor necrosis with central air/brochopleural fistulae. He has previously requested DNR status. PMH: RLE osteosarcoma resection Jan 2016 metaastatic osteosarcoma June 2016 started on Votrient pulmonary embolus June 2016 remote history prostate CA type II DM Hypertension A-flutter s/p ablation COPD non-smoker all: Codeine, Neurontin meds: Votrient, Xarelato, Metformin, Tylenol SH: here with his /she has his MPOA daughter in [place], son in [place] ROS: reports nausea and chest pain PE: pleasant elderly gentleman in mild distress due to emesis/no dyspnea/no repsiratory distress O2 sat 96% 2lpm HEENT: no adenopathy/trachea midline lungs: diminished breath sounds bilaterally left worse than right CVS: RRR abd: soft, hypoactive bowel sounds Chest CT reviewed from today and compared to June 2016 bilateral pleural effusions have worsened. Numerous persistant enhancing mets/ some mets have undergone central necrosis with internal air suggesting malignant bronchopleural fistulae/this display signficant ring enhancement. mediastinal adenopathy improved. 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 I also described the procedure of closed tube thoracostomy and the possibility that he has bronchopleural fistulae that may not close due to the presence of tumor. He stated that he had a strong nallely and that he had a good life with no regrets. I recommended observation for tonight and tomorrow and if he decides to proceed with aggressive intervention I would wait until Wednesday morning for his anticoagulant effect to wear off. I reconciled his medications on the EMR. I would recommend consulting Oncology and hold Votrient for now. Kirk Valera MD, FACS
--- NOTE | 2016-09-11 16:22 | EDPHY ---
PA Addendum - Addendum .: At approximately 8:00 a.m. on 09/11/2016 I was notified by a Dr. Teofilo Rojas that the chest x-ray taken just after midnight showed a left hemopneumothorax. Shortly after speaking with Dr. Rojas I spoke with the hospitalist service and relayed these results.
[2016-09-11] MEDS ORDERED: D10W 250 ML PRN HYPOGLYCEMIA IV (16:30)
--- NOTE | 2016-09-11 17:53 | HOSPPROG ---
Hospitalist Progress Note Assessment/Plan: The patient through the day continues to have the same pleuritic left-sided chest pain. He has no fever, no shortness of breath, and overall has been stable other than a mild sinus tachycardia intermittently. He is using some nasal cannula oxygen. Review of his chest x-rays does show a left hydro pneumothorax. I reviewed this with Dr. Asher Valera and Kathia Sol. A CT scan of chest was ordered and I reviewed that with Dr. Guzman of Radiology. The CT scan does show not only a significant hydro pneumothorax on the left side, but it shows a small pneumothorax on the right side as well as a right pleural effusion. Also it does show a significant response to chemotherapy with decrease in size of most of the tumors throughout both lungs. I am waiting for a call back from the on-call oncologist Dr. Summers. Dr. Sol visited the patient this afternoon and he is the patient's outpatient oncologist. The plan was to see if the patient was having any response or not. I had a if there was no response of the tumors to chemotherapy Dr. Sol intended to talk to the patient and further about possibly choosing palliative care at this point. I am waiting to have further conversation with Dr. Summers or Dr. Sol now that we see that the patient actually is responding to chemotherapy. Will have to make a decision with the family about whether to choose aggressive care. At the moment as the patient's respirations and blood pressure remains stable, we are avoiding a chest tube as he is fully anticoagulated due to his recent PE. Plan will be to move the patient to intensive care unit for closer monitoring while we wait for his anticoagulation to wear off. I am assuming at this point that unless the family has a change of heart about his treatment that they will wish to proceed with placement of a chest tube as indicated. At the moment given his apparent response to chemotherapy treatment they may want to proceed with chest tube. In terms of etiology is unclear why the patient has bilateral pneumothoraces at this time. Given that he has significant shrinkage of his tumors Dr. Guzman wondered if he could possibly have had necrosis and breakdown of the tumor leading to a bronchopleural fistula. There are no rib fractures to suggest injury per se. The patient has fallen at home but there is no history of any chest discomfort after the fall. I am moving the patient to the SDU in icu for closer monitoring while we wait for his anticoagulation to wear off. It may be reasonable to keep off anticoag now as he has 3 months of therapy in but he does have cancer. Further review with oncology. DIAGNOSES: -Acute large left hydro pneumothorax -Small right pneumothorax also associated with pleural effusion -Metastatic osteosarcoma with large number of pulmonary metastases, with evidence of response to current chemotherapy on CT with shrinkage of all or most of his pulmonary masses -Injury to the right knee from a recent fall at home without evidence of fracture on x-ray -anticoagulation for recent PE (3 + months ago) > 50 minutes spent with family and in care coordination today in addition to Dr Echols's visit time Objective: Vital Signs Temp Pulse Resp BP Pulse Ox 36.5 C 107 H 19 167/115 H 90 L 09/11/16 16:00 09/11/16 16:00 09/11/16 16:00 09/11/16 16:00 09/11/16 16:00 Laboratory Results 09/11/16 03:43 09/10/16 09/11/16 09/12/16 06:59 06:59 06:59 Intake Total 1140 175 Output Total 825 Balance 1140 -650 PT 17.7 SEC (12.0-15.0) H 09/10/16 22:40 INR 1.46 (0.83-1.16) H 09/10/16 22:40 ICD10 Worksheet Patient Problems: Problems Problem Status Onset Chest pain Acute Pulmonary embolism Acute Sarcoma of right lower extremity Acute
--- NOTE | 2016-09-11 21:14 | GCON ---
[f rep st] CONSULTATION ONCOLOGY CONSULTATION DATE OF CONSULTATION: 09/11/2016 REASON FOR CONSULTATION: Evaluation and management of metastatic sarcoma. Primary oncologist is Dr. Sol. HISTORY OF PRESENT ILLNESS: Mr. 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 He was seen and treated b y Dr. Andrew Martinez and Dr. Clemons in [place] initially. He underwent neoadjuvant radiation through December with a partial response and then underwent resection with clear margins in January. Around the time of surgery, he had a CT of his chest that showed very small lung lesions, too small to cla rify, so I monitored him closely postop and these nodules grew. In May he underwent a PET-CT scan that showed that not only did they continue to grow but were PET avid, consistent with metastatic d isease. We did not biopsy the lesions. Shortly after he was admitted to the hospital in June with a PE and showing signs of continued progression, he started on pazopanib. He has had some problems with fatigue related to the drug but overall tolerating it well. We were getting ready to restage him in the next few weeks. He was admitted early this morning with possible chest pain on the right side. It radiated to the l eft. He denied being short of breath. On admission, a chest x-ray was performed that showed a left- sided pleural effusion and pneumothorax. He is being seen by surgery. The patient may feel like he has a little difficulty taking a deep breath but denies any pain, and his vitals have been stable. ALLERGIES: He has multiple allergies. Please see the chart. HOME MEDICATIONS: Include pazopanib 400 mg daily, tramadol, MiraLAX, milk of magnesia, hydromorphon e, acetaminophen, diphenhydramine cream, hydrocortisone cream, metformin, Benadryl as needed for itc allison, ondansetron, lidocaine patch, Xarelto, ramipril, multivitamin and vitamin B12. CHRONIC ILLNESSES: Include. 1. Soft tissue sarcoma as per HPI. 2. Type 2 diabetes. 3. Atrial flutter. 4. Hypertension. 5. Pulmonary embolism in June, currently on low-dose Xarelto. 6. COPD. 7. Macular degeneration. 8. Remote history of prostate cancer. SURGICAL HISTORY: Includes: 1. A right leg sarcoma resection in January 2016. 2. Shoulder surgery. 3. Cataract surgery. SOCIAL HISTORY: He is in independent living at the [facility]. He has 4 children. No smoking or dri nking. FAMILY HISTORY: Noncontributory. REVIEW OF SYSTEMS: 10-point review of systems was performed. Pertinent positives in HPI, otherwise negative. PHYSICAL EXAMINATION: VITAL SIGNS: Temperature is 36.4, saturating 93% on 2 L. Respiratory rate 1 6, heart is 102, blood pressure is 126/86. GENERAL: He is an elderly man, mildly disoriented but in no distress. HEENT: Unremarkable. LUNGS: Clear on the right. On the left, decreased with a mireya le bit of a rub in the base. CARDIAC: Mildly tachycardic. ABDOMEN: Soft. EXTREMITIES: He has a bruise on his right knee that is healing. NEUROLOGIC: He has chronic right leg weakness since the surgery, especially the hip flexure. He also is mildly disoriented. LABORATORY DATA: CBC is unremarkable. INR is 1.5. His chemistries are unremarkable. Chest x-ray shows a large left hydropneumothorax, probable underlying pneumonia versus metastatic disease. Look ing at it, I suspect metastatic disease. IMPRESSION: 1. Soft tissue sarcoma with lung metastasis. 2. Hydropneumothorax, spontaneous, possibly related to underlying malignancy. 3. History of pulmonary embolism in June. PLAN: Mr. Brito is an elderly man in that we have tried to treat his cancer with as little side e ffects as possible. It has been a little hit and miss on the pazopanib, but I think we found a dose that worked. It was around this time we were planning to restage him anyway to see if he is having any benefit of the drug. I think with the recent episode, it would be worthwhile at least getting a noncontrast CT and see if the cancer has responded. If it is not, there really is not a second-aleshia e therapy that he would tolerate and I would recommend comfort care measures going forward. Hopeful ly that will help both Surgery and internal Medicine to determine how aggressively to treat this hyd ropneumothorax that the patient seems to be only having minimal symptoms to. The clot was 3 months ago, so there is no contraindication to holding anticoagulation until this can be better clarified. We will follow along with you while in the hospital. /[id number]/MODL
[2016-09-11] MEDS ORDERED: fentaNYL 100 MCG/2 ML INJ IVP PRN (21:26)
[2016-09-11] MEDS ORDERED: ACETAMINOPHEN 325 MG TAB PO PRN (21:29)
[2016-09-11] MEDS ORDERED: DIPHENHYDRAMINE CREAM TP PRN (21:29)
[2016-09-11] MEDS ORDERED: diphenhydrAMINE 25 MG CAP PO PRN (21:29)
[2016-09-11] MEDS ORDERED: POLYETHYLENE GLYCOL 3350 17 GM PKT PO PRN (21:29)
[2016-09-11] MEDS ORDERED: HYDROCORTISONE 1% CREAM TP PRN (21:29)
[2016-09-11] MEDS ORDERED: MAGNESIUM HYDROXIDE 30 ML UDCUP PO PRN (21:29)
[2016-09-11] MEDS ORDERED: ONDANSETRON DISINTEGRATING 4 MG TAB PO PRN (21:29)
[2016-09-11] MEDS ORDERED: HYDROmorphONE/DILAUDID 2 MG TAB PO PRN (21:29)
[2016-09-11] MEDS: LIDOCAINE 5% 1 EA PATCH TD SCH (22:56)
--- NOTE | 2016-09-12 05:55 | PDCONSULT ---
Emergency Communications Dispatcher Note: James is resting comfortably and is in no acute respiratory distress. He has been confused throughout the night and does not remember why he is here. O2 sats remain at 96% on 2 lpm AM CXR is pending. I reviewed the literature on pneumothorax associated with treatment of subpleural metastasis from soft tissue tumors with Paxopanib (paper copy placed on patient's chart). Pneumothorax occured in 3-14% of patients treated and require resection of cavitary lesions for successful management and despite agressive surgical intervention frequently recurred and were associate with poor outcomes. James has bilateral cavitary lesion with bilateral hydropneumothorax and would require general anesthesia with double lumen endotracheal tube to allow for bilateral VATS with resection of necrotic/cavitary lesions and talc pleurodesis. His recovery from that procedure would be difficult and may require post op ventilatory support. His prognosis remains guarded. Given his confusion, I am not sure he is competent to make the decision to proceed with surgery and I would defer to his and his family and the advice of his oncologist, Dr. Sol. Kirk Valera MD, FACS
[2016-09-12] MEDS: ONDANSETRON 4 MG/2 ML VIAL IVP PRN (06:45)
[2016-09-12] MEDS: INSULIN LISPRO 100 UNIT/ML SC SCH ×3 (10:44→18:36)
[2016-09-12] MEDS: LIDOCAINE 5% 1 EA PATCH TD SCH (10:44)
[2016-09-12] MEDS: FUROSEMIDE 40 MG/4 ML VIAL IVP SCH (10:44)
[2016-09-12] MEDS: RAMIPRIL 5 MG CAP PO SCH (10:44)
--- NOTE | 2016-09-12 15:29 | SOAPPROG ---
SOAP Progress Note Assessment/Plan: Assessment: 1. metastatic STS with lung mets: He has a spontaneous pneumothorax of LEFT lung as a consequence of either pozapanib or the disease itself. I agree with Dr. Valera that he is not a good candidate for surgery and the surgical procedure would include remval of the offending lobe of the lung. At his age this is probably too much. I spoke to him and his and they are more interested in palliative care and want to meet with hospice. I will be happy to sit down with them tomorrow when their daughter comes in. Plan: 09/12/16 15:31 Subjective: James is an 86 yo with a STS with lung mets who came in with a spontaneous pneumothorax. He has lung mets and has been on pozapanib since June 2016. He has cavitation of these mets and that is presumptively what led to a pneumothorax. He is comfortable now. His O2 sat on RA is around 89%. He and his are tired of the side effects of pozapanib and they are interested in talking to hospice. Objective: Vital Signs Temp Pulse Resp BP Pulse Ox 36.6 C 99 22 H 140/90 H 90 L 09/12/16 12:00 09/12/16 12:00 09/12/16 12:00 09/12/16 12:00 09/12/16 12:00 Laboratory Results 09/11/16 03:43 09/11/16 09/12/16 09/13/16 05:59 05:59 05:59 Intake Total 1140 275 Output Total 1000 150 Balance 1140 -725 -150 PT 17.7 SEC (12.0-15.0) H 09/10/16 22:40 INR 1.46 (0.83-1.16) H 09/10/16 22:40 Alert. hard of hearing. Looks comfortable - Time Spent With Patient Time Spent With Patient: 30 min ICD10 Worksheet Patient Problems: Problems Problem Status Onset Chest pain Acute Pulmonary embolism Acute Sarcoma of right lower extremity Acute
--- NOTE | 2016-09-12 15:47 | HOSPPROG ---
Hospitalist Progress Note Assessment/Plan: 86 yo M with PMH of metastatic osteosarcoma and recent PE pw chest pain and found to have large left hydroptx # acute large left hydroptx: general surgery involved and has met with patient and family and given underlying metastatic disease and limited likelihood of improvement with surgical intervention, this is being deferred. # small right ptx/pleural effusion: as above # metastatic osteosarcoma: in association with above, family has met with surgery and oncology and they along with the patient are leaning towards hospice rather than continued aggressive care. Palliative will be involved and care plans will be made in coming days. # PE: with hx of recurrent VTE, AC had been held given possible need for surgery , will discuss if this should be resumed # dispo: IP status, multiple active medical issues requiring complex decision making and > 48 hour stay Patient new to my care. Old records reviewed and summarized as above. Care plan reviewed with Dr. Gifford and multidisciplinary care team. Further hx obtained from [facility] Subjective: no significant overnight events, patient feeling much better today, breathing well Objective: Vital Signs Temp Pulse Resp BP Pulse Ox 36.6 C 99 22 H 140/90 H 90 L 09/12/16 12:00 09/12/16 12:00 09/12/16 12:00 09/12/16 12:00 09/12/16 12:00 Laboratory Results 09/11/16 03:43 09/11/16 09/12/16 09/13/16 05:59 05:59 05:59 Intake Total 1140 275 Output Total 1000 150 Balance 1140 -725 -150 PT 17.7 SEC (12.0-15.0) H 09/10/16 22:40 INR 1.46 (0.83-1.16) H 09/10/16 22:40 awake alert nad anicteric op clear rrr dec bs throughout soft nt no cce warm dry well perfused oriented appropriate ICD10 Worksheet Patient Problems: Problems Problem Status Onset Sarcoma of right lower extremity Acute Pulmonary embolism Acute Chest pain Acute
[2016-09-13] MEDS: INSULIN LISPRO 100 UNIT/ML SC SCH ×3 (07:39→17:48)
[2016-09-13] MEDS: FUROSEMIDE 40 MG/4 ML VIAL IVP SCH (09:30)
[2016-09-13] MEDS: RAMIPRIL 5 MG CAP PO SCH (09:30)
[2016-09-13] MEDS: LIDOCAINE 5% 1 EA PATCH TD SCH (09:31)
--- NOTE | 2016-09-13 15:06 | HOSPPROG ---
Hospitalist Progress Note Assessment/Plan: 86 yo M with PMH of metastatic osteosarcoma and recent PE pw chest pain and found to have large left hydroptx # acute large left hydroptx: general surgery involved and has met with patient and family and given underlying metastatic disease and limited likelihood of improvement with surgical intervention, this is being deferred. Repeat CXR personally reviewed and interpreted showing no change from prior # small right ptx/pleural effusion: as above # metastatic osteosarcoma: in association with above, family has met with surgery and oncology and they along with the patient are planning to go to hospice, hospice consulted # PE: with hx of recurrent VTE, AC had been held given possible need for surgery , will discuss if this should be resumed # dispo: IP status, multiple active medical issues requiring complex decision making and > 48 hour stay Reviewed care plan with patients present at bedside Subjective: no significant overnight events, patient states "I am getting close to the end of my life" Objective: Vital Signs Temp Pulse Resp BP Pulse Ox 36.7 C 109 H 20 117/82 H 93 09/13/16 11:11 09/13/16 11:11 09/13/16 11:11 09/13/16 11:11 09/13/16 11:11 09/12/16 09/13/16 09/14/16 05:59 05:59 05:59 Intake Total 400 Balance 400 PT 17.7 SEC (12.0-15.0) H 09/10/16 22:40 INR 1.46 (0.83-1.16) H 09/10/16 22:40 awake alert oriented anicteric op clear rrr no mrg - Time Spent With Patient Time Spent with Patient: greater than 35 minutes Time Spent with Patient: Greater than 35 minutes spent on this patients care, greater than 50% of time spent counseling, educating, and coordinating care regarding the above mentioned plan. ICD10 Worksheet Patient Problems: Problems Problem Status Onset Sarcoma of right lower extremity Acute Pulmonary embolism Acute Chest pain Acute
--- NOTE | 2016-09-13 15:49 | SOAPPROG ---
SOAP Progress Note Assessment/Plan: Assessment: 1. metastatic STS with lung mets: He has a spontaneous pneumothorax of LEFT lung as a consequence of either pozapanib or the disease itself. I agree with Dr. Valera that he is not a good candidate for surgery and the surgical procedure would include remval of the offending lobe of the lung. At his age this is probably too much. I spoke to him and his and they are more interested in palliative care and want to meet with hospice. They have opted for home hospice. I think the prognosis could be in months. Plan: 09/12/16 15:31 09/13/16 15:48 Subjective: James is an 86 yo with a STS with lung mets who came in with a spontaneous pneumothorax. He has lung mets and has been on pozapanib since June 2016. He has cavitation of these mets and that is presumptively what led to a pneumothorax. He is comfortable now. His O2 sat on RA is around 89%. He and his are tired of the side effects of pozapanib and they are interested in talking to hospice. They are planning on using [facility] tomorrow. Objective: Vital Signs Temp Pulse Resp BP Pulse Ox 36.7 C 109 H 20 117/82 H 93 09/13/16 11:11 09/13/16 11:11 09/13/16 11:11 09/13/16 11:11 09/13/16 11:11 09/12/16 09/13/16 09/14/16 05:59 05:59 05:59 Intake Total 400 Balance 400 PT 17.7 SEC (12.0-15.0) H 09/10/16 22:40 INR 1.46 (0.83-1.16) H 09/10/16 22:40 - Time Spent With Patient Time Spent With Patient: 30 min ICD10 Worksheet Patient Problems: Problems Problem Status Onset Sarcoma of right lower extremity Acute Pulmonary embolism Acute Chest pain Acute
[2016-09-13] MEDS: ONDANSETRON DISINTEGRATING 4 MG TAB PO PRN (20:16)
[2016-09-13] MEDS: traMADol 50 MG TAB PO PRN (21:59)
[2016-09-14] MEDS: INSULIN LISPRO 100 UNIT/ML SC SCH ×3 (07:57→18:48)
[2016-09-14] MEDS: FUROSEMIDE 40 MG/4 ML VIAL IVP SCH (07:59)
[2016-09-14] MEDS: LIDOCAINE 5% 1 EA PATCH TD SCH ×3 (08:00→10:09)
[2016-09-14] MEDS: ONDANSETRON DISINTEGRATING 4 MG TAB PO PRN ×2 (08:48→18:54)
[2016-09-14] MEDS: RAMIPRIL 5 MG CAP PO SCH (10:10)
--- NOTE | 2016-09-14 10:10 | SOAPPROG ---
SOAP Progress Note Assessment/Plan: Assessment: 1. Soft tissue sarcoma 2. Pneumothorax due to cavitation of lung tumors Plan: -hospice. I discussed this at length with the patient, his , and his daughter. He is very clear that he does not want a major surgical procedure to correct the pneumothorax, or other systemic therapy for the sarcoma (which would have a low chance of working and would only be palliative). Unclear if he can be cared for at home or will need a SNF. Hospice to address today. 30 min spent w/ pt and in coordination of care. 09/14/16 10:09 Subjective: feels "fair" today. Objective: exam: elderly, breathing comfortably. Lungs: absent breath sounds on L CV: RRR no MGR ABd: +BS NT nD Ext: no edema Neuro: a+ox3/ Vital Signs Temp Pulse Resp BP Pulse Ox 36.4 C 98 16 133/88 H 92 09/14/16 07:11 09/14/16 07:11 09/14/16 07:11 09/14/16 07:11 09/14/16 07:11 09/13/16 09/14/16 09/15/16 05:59 05:59 05:59 Intake Total 400 1160 Output Total 50 Balance 400 1110 PT 17.7 SEC (12.0-15.0) H 09/10/16 22:40 INR 1.46 (0.83-1.16) H 09/10/16 22:40 ICD10 Worksheet Patient Problems: Problems Problem Status Onset Chest pain Acute Pulmonary embolism Acute Sarcoma of right lower extremity Acute
[2016-09-14] MEDS: traMADol 50 MG TAB PO PRN (10:14)
--- NOTE | 2016-09-14 12:34 | HOSPPROG ---
Hospitalist Progress Note Assessment/Plan: 86 yo M with PMH of metastatic osteosarcoma and recent PE pw chest pain and found to have large left hydroptx # acute large left hydroptx: general surgery involved and has met with patient and family and given underlying metastatic disease and limited likelihood of improvement with surgical intervention, taking surgery off of the table. Patient and family opting more for palliative care. # small right ptx/pleural effusion: as above # metastatic osteosarcoma: in association with above, family has met with surgery and oncology and they along with the patient are planning to go to hospice, hospice consulted # PE: with hx of recurrent VTE, AC had been held given possible need for surgery , will discuss if this should be resumed # dispo: IP status, multiple active medical issues requiring complex decision making and > 48 hour stay, likely to hospice in coming days Subjective: no significant overnight events, patient somnolent this am Objective: Vital Signs Temp Pulse Resp BP Pulse Ox 37.1 C 57 L 16 128/76 H 91 L 09/14/16 12:17 09/14/16 12:17 09/14/16 12:17 09/14/16 12:17 09/14/16 12:17 09/13/16 09/14/16 09/15/16 05:59 05:59 05:59 Intake Total 400 1160 Output Total 50 Balance 400 1110 PT 17.7 SEC (12.0-15.0) H 09/10/16 22:40 INR 1.46 (0.83-1.16) H 09/10/16 22:40 somnolent, arousable anicteric op clear rrr no mrg ICD10 Worksheet Patient Problems: Problems Problem Status Onset Chest pain Acute Pulmonary embolism Acute Sarcoma of right lower extremity Acute
--- NOTE | 2016-09-14 14:08 | PDPCPN ---
Palliative Care Progress Note Assessment/Plan: Referring provider: Dr Layne Reason for consult: Complex medical decision making Symptom control HPI: James Brito is a 86 yo with PMH met osteosarcoma, COPD, DM, CAD, and HTN admitted to the hospital with chest pain. Recent admission 06/2016 for similar symptoms dx with PE and has been on anti coagulation since. He has been receiving treatment with [facility] for his cancer. Ct chest with large left hydropneumothorax 2/2 lung nodules. Surgery consult but high risk and not thought to be of benefit. Family has met with hospice care but is unsure about enrolling into hospice. Palliative care consulted for complex medical decision making. Met with , daughter and DIL outside of the room. The family states their goals are to be at home and not pursue aggressive medical interventions. Their concerns are about James having ongoing chest pain and his need to call 911 due to fear. We discussed that James calls 911 because he has confidence when he comes to the hospital but that the hospital is not able to provide much medical interventions. Discussed hospice at length with goals of providing comfort at home. They would like to go home with hospice care. He has 05/[address] along with DME equipment. Lauren feels he wants to be at home and would not want him to go someplace else. Assessment: Physical: - Pain: occasional leg pain - tylenol PRN - tramadol PRN - has poor reactions to morphine with increased agitation. 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 Per family dignity will need 48 hours notice. They would prefer Wednesday or morning. 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 Has 1 daughter and 1 son local and involved. Practicing [employer]. Medication list reviewed ROS: General: fatigue, weakness ENT: negative Resp: chest pain at times GI: negative : negative MS: occasional right leg pain Skin: negative Neuro: negative Psych: confusion Functional assessment: PPS: 50% Functional status: needs assistance with ambulation and ADLs Vital Signs Temp Pulse Resp BP Pulse Ox 37.1 C 57 L 16 128/76 H 91 L 09/14/16 12:17 09/14/16 12:17 09/14/16 12:17 09/14/16 12:17 09/14/16 12:17 09/13/16 09/14/16 09/15/16 05:59 05:59 05:59 Intake Total 400 1160 Output Total 50 Balance 400 1110 PT 17.7 SEC (12.0-15.0) H 09/10/16 22:40 INR 1.46 (0.83-1.16) H 09/10/16 22:40 Physical Exam - Physical Exam General Appearance: alert, no apparent distress Respiratory: No respiratory distress, No accessory muscle use Skin: normal color, warm/dry Extremities: No pedal edema Neuro/Psych: alert, oriented x 3, other (some forgetfullness) ICD10 Worksheet Patient Problems: Problems Problem Status Onset Chest pain Acute Palliative care encounter Acute Pulmonary embolism Acute Sarcoma of right lower extremity Acute - ICD10 Problem Qualifiers (1) Palliative care encounter
[2016-09-14] MEDS: HYDROmorphONE/DILAUDID 1 MG/ML SYR IVP PRN (20:54)
[2016-09-15] MEDS: ONDANSETRON 4 MG/2 ML VIAL IVP PRN ×3 (02:49→09:48)
[2016-09-15] MEDS: HYDROmorphONE/DILAUDID 1 MG/ML SYR IVP PRN ×4 (02:55→20:00)
[2016-09-15] MEDS ORDERED: HYDROmorphONE/DILAUDID 1 MG/ML SYR IVP PRN (03:48)
[2016-09-15 04:55] VITALS: RESP 20
[2016-09-15] MEDS: INSULIN LISPRO 100 UNIT/ML SC SCH ×3 (08:50→18:37)
[2016-09-15] MEDS: LIDOCAINE 5% 1 EA PATCH TD SCH (08:51)
[2016-09-15] MEDS: FUROSEMIDE 40 MG/4 ML VIAL IVP SCH (08:51)
--- NOTE | 2016-09-15 12:27 | SOAPPROG ---
SOAP Progress Note Assessment/Plan: Assessment 1. Soft tissue sarcoma 2. Pneumothorax due to cavitation of lung tumors Plan: -hospice. I discussed this at length with the patient, his , and his daughter. He is very clear that he does not want a major surgical procedure to correct the pneumothorax, or other systemic therapy for the sarcoma (which would have a low chance of working and would only be palliative). I think because of his high flow 02 he will need the care center 30 min spent w/ pt and in coordination of care. Plan: 09/15/16 12:24 Subjective: Feels fair Objective: Vital Signs Temp Pulse Resp BP Pulse Ox 97.9 F 117 H 20 151/100 H 91 L 09/15/16 08:15 09/15/16 11:39 09/15/16 11:39 09/15/16 11:39 09/15/16 11:39 09/14/16 09/15/16 09/16/16 05:59 05:59 05:59 Intake Total 1160 1450 Output Total 50 Balance 1110 1450 PT 17.7 SEC (12.0-15.0) H 09/10/16 22:40 INR 1.46 (0.83-1.16) H 09/10/16 22:40 ICD10 Worksheet Patient Problems: Problems Problem Status Onset Chest pain Acute Palliative care encounter Acute Pulmonary embolism Acute Sarcoma of right lower extremity Acute
[2016-09-15] MEDS ORDERED: LORazepam 1 MG/0.5 ML UDSYR PO PRN (12:37)
[2016-09-15] MEDS: RAMIPRIL 5 MG CAP PO SCH (12:40)
[2016-09-15] MEDS ORDERED: ALPRAZolam 0.5 MG TAB PO PRN ×2 (12:40→12:42)
[2016-09-15] MEDS ORDERED: ALPRAZolam 0.25 MG TAB PO PRN (12:53)
--- NOTE | 2016-09-15 13:47 | HOSPPROG ---
Hospitalist Progress Note Assessment/Plan: 86 yo M with PMH of metastatic osteosarcoma and recent PE pw chest pain and found to have large left hydroptx # acute large left hydroptx -surgical intervention not recommended by general surgery - oxygen saturations declining - oxygen saturations 90% on 10L cxr (personally reviewed and interpreted) stable hydro-pneumothroax - continue supportive care - recommending inpatient hospice secondary to the high-flow oxygen needs # small right ptx/pleural effusion: as above - continue daily Lasix for now # metastatic osteosarcoma- patient not in candidate for additional treatment- hemoglobin 16 - consulting hospice today for inpatient placement # PE- with hx of recurrent VTE- anticoagulation originally held for possible surgical intervention - restart today # dispo: IP status, multiple active medical issues requiring complex decision making and > 48 hour stay, likely to hospice tomorrow # diet regular- taking little p.o. # prophylaxis anticoagulation as above I have discussed the case with Oncology they are in agreement inpatient hospice a more appropriate disposition and home hospice Subjective: breathing stable if not slightly improved from overnight Objective: Vital Signs Temp Pulse Resp BP Pulse Ox 36.6 C 117 H 20 151/100 H 91 L 09/15/16 08:15 09/15/16 11:39 09/15/16 11:39 09/15/16 11:39 09/15/16 11:39 09/14/16 09/15/16 09/16/16 05:59 05:59 05:59 Intake Total 1160 1450 Output Total 50 Balance 1110 1450 PT 17.7 SEC (12.0-15.0) H 09/10/16 22:40 INR 1.46 (0.83-1.16) H 09/10/16 22:40 - Physical Exam Constitutional: chronically ill appearing Eyes: anicteric sclera Ears, Nose, Mouth, Throat: moist mucous membranes Cardiovascular: regular rate and rhythym, tachycardia Respiratory: no respiratory distress, reduced air movement Gastrointestinal: normoactive bowel sounds, soft, non-tender abdomen Genitourinary: no bladder fullness Skin: warm, normal color Musculoskeletal: No asymmetric calves Neurologic: AAOx3 Psychiatric: interacting appropriately, not anxious Lymph, Heme, Immunologic: no cervical LAD ICD10 Worksheet Patient Problems: Problems Problem Status Onset Chest pain Acute Palliative care encounter Acute Pulmonary embolism Acute Sarcoma of right lower extremity Acute
[2016-09-15] MEDS: ONDANSETRON DISINTEGRATING 4 MG TAB PO SCH ×2 (15:05→18:36)
[2016-09-15 15:18] VITALS: BP 147/118; PULSE 115; TEMP 98.8; O2SAT 92
[2016-09-15] MEDS ORDERED: ATROPINE 1% 5 ML OPHT.BTL SL PRN (16:29)
[2016-09-15] MEDS ORDERED: SCOPOLAMINE HYDROBROMIDE 1.5 MG PATCH TD SCH (16:30)
[2016-09-15] MEDS ORDERED: RIVAROXABAN 10 MG TAB PO SCH (18:00)
[2016-09-15] MEDS ORDERED: LORazepam 2 MG/ML INJ IVP SCH (20:00)
--- NOTE | 2016-09-16 09:39 | GDS ---
[f rep st] DISCHARGE SUMMARY dictation. DATE OF : 09/15/2016. HISTORY OF PRESENT ILLNESS: An 86-year-old male with a history of metastatic osteosarcoma with rece nt pulmonary embolism, who presented with chest pain. Patient was found to have a large left hydrop neumothorax. The patient was admitted to the hospital. Seen by Oncology, General Surgery, and elias mmendations were made towards comfort care and hospice placement, as the patient was not a candidate for ongoing therapy and/or surgical intervention. HOSPITAL COURSE: By issue. 1. Acute large left hydropneumothorax. The patient did develop progressive respiratory compromise through the course of this hospitalization. On the day of , the patient was sating low 90s, on 10 L of oxygen in the store assistant, through the course of the afternoon developed tachypnea and wo rsening oxygen saturations. The patient passed in his room with his family at [facility], the evening of 09/15/2016. 2. Metastatic osteosarcoma. The patient was found to be a poor candidate for any additional treatm ent during this hospitalization. Oncology followed, and hospice was consulted for inpatient [facility], and the patient before he was transitioned to hospice. The patient passed on 1 [address] with family at his bedside, with comfort care measures in place. /[id number]/MODL
== END 2016-09-15 22:20 | disposition expired | DRG 181 ==
LOC: EDUNIT# → INTOOBSV 09-11 02:07 → F2W 09-11 02:55 → F2N 09-11 19:34 → OBSVTOIN 09-12 15:44 → F1N 09-12 18:29
PROVIDERS: ADMIT Internal Medicine; ATTEND Internal Medicine
DX: C78.00 Secondary malignant neoplasm of unspecified lung (principal); J94.8 Other specified pleural conditions; C79.51 Secondary malignant neoplasm of bone; C49.21 Malignant neoplasm of connective and soft tissue of right lower limb, including hip; J91.0 Malignant pleural effusion; J93.12 Secondary spontaneous pneumothorax; E11.9 Type 2 diabetes mellitus without complications; I10 Essential (primary) hypertension; E78.00 Pure hypercholesterolemia, unspecified; J44.9 Chronic obstructive pulmonary disease, unspecified; Z85.46 Personal history of malignant neoplasm of prostate; Z86.711 Personal history of pulmonary embolism; Z79.01 Long term (current) use of anticoagulants
CPT/HCPCS: 82947-QW; 96374; G0378; J0360; J1170; J1815; J1940; J2405